=== PATIENT | male | born 1990 | race Two or more races ===

== ENCOUNTER 2024-09-04 01:56 | Emergency (ER) | payer MEDICAID, OTHER ==
[~2024-09-04] VITALS: Ht 180.3 cm; Wt 104.3 kg
[2024-09-04 02:05] VITALS: BP 155/114; TEMP 98.2; O2SAT 98
[2024-09-04] MEDS ORDERED: LORAZEPAM 1 MG TABLET ONE (02:20)
[2024-09-04] MEDS: LORAZEPAM 1 MG TABLET PO ONE (02:31)
== END 2024-09-04 02:33 ==
LOC: ER 01:57
DX: Z02.89 Encounter for other administrative examinations (principal); F41.9 Anxiety disorder, unspecified; F17.200 Nicotine dependence, unspecified, uncomplicated; R20.0 Anesthesia of skin; R20.2 Paresthesia of skin